=== PATIENT | female | born 1950 | race Caucasian/White ===

== ENCOUNTER 2020-05-27 20:21 | Emergency (ER) | payer MEDICARE ==
[~2020-05-27] VITALS: Ht 177.8 cm; Wt 64.0 kg
[~2020-05-27 20:21] MED LIST: ACET325T26 PO; CALC1TAB68 PO; CALC3.7S5 NAS; FERR-51 PO; MIRT-34 PO; NICO-486 TD
--- NOTE | 2020-05-27 20:44 | NUR ---
PERNELL STEINER AND SHIVA
[2020-05-27] MEDS ORDERED: ACETAMINOPHEN 325 MG TABLET ONE (22:59)
[2020-05-27] MEDS ORDERED: ACETAMINOPHEN 325 MG TABLET PO ONE (23:00)
[2020-05-27 23:22] VITALS: BP 132/74
== END 2020-05-27 23:24 | disposition home or self-care (01) ==
LOC: ED 20:45
DX: S01.01XA Laceration without foreign body of scalp, initial encounter (principal); S09.90XA Unspecified injury of head, initial encounter; M54.2 Cervicalgia; W01.0XXA Fall on same level from slipping, tripping and stumbling without subsequent striking against object, initial encounter; Y93.89 Activity, other specified; Y92.009 Unspecified place in unspecified non-institutional (private) residence as the place of occurrence of the external cause; Y99.8 Other external cause status
CPT/HCPCS: 12032; 70450; 72125; 99285